=== PATIENT | female | born 1980 | race Two or more races ===

== ENCOUNTER 2017-01-23 15:16 | Inpatient (IN) | payer OTHER ==
[2017-01-23 18:28] VITALS: BMI 36.9
--- NOTE | 2017-01-23 19:57 | HP ---
CIWA Score - CIWA Score Nausea/Vomitin Muscle Tremors: 3 Anxiety: 3 Agitation: 3 Paroxysmal Sweats: 2 Orientation: 0-Oriented Tacttile Disturbances: 2-Mild Itch/Numbness/Burn Auditory Disturbances: 2-Mild Harshness/Frighten Visual Disturbances: 2-Mild Sensitivity Headache: 2-Mild CIWA-Ar Total Score: 22 Admission ROS BHS - HPI Chief Complaint: i need help to stop drinking alcohol,xanax,cocaine,marijuana,heroin Allergies/Adverse Reactions: Allergies Allergy/AdvReac Type Severity Reaction Status Date / Time lactose Allergy Severe Vomiting Verified 01/23/17 19:22 sertraline HCl [From Zoloft] Allergy Severe Swelling Verified 01/23/17 19:22 History of Present Illness: this 36 years old female with alcohol dependence,xanax,cocaine,marijuana,heroin dependence,seeking detox,last treatment 04/27 [facility] completed alcohol related seizure last 04/27 syncope protein c deficiency on lovenox 120 mgs subcut last medicated 9 pm dvt right 06/28 [place] [facility] left 08/[address] [facility] schizoaffective disorder multiple admissions longest period sobriety 5 years Exam Limitations: No Limitations - Ebola screening Have you traveled outside of the country in the last 21 days: No Have you had contact with anyone from an Ebola affected area: No Have you been sick,other than usual withdrawal symptoms: No - Review of Systems Constitutional: Loss of Appetite, Malaise, Night Sweats, Changes in sleep, Weakness EENT: reports: Nose Congestion Respiratory: reports: Other (asthma,copd) Cardiac: reports: No Symptoms Reported GI: reports: Diarrhea, Nausea, Vomiting, Abdominal cramping : reports: No Symptoms Reported Musculoskeletal: reports: Back Pain, Muscle Pain Integumentary: reports: Dryness Neuro: reports: Tremors Endocrine: reports: No Symptoms Reported Hematology: reports: Anemia Psychiatric: reports: Judgement Intact, Mood/Affect Appropiate, Orientated x3 ( schizoaffective), other Patient History - Patient Medical History Hx Anemia: Yes (non compliant) Hx Asthma: Yes (on albuterol and advair) Hx Chronic Obstructive Pulmonary Disease (COPD): Yes (on albuterola nd advair) Hx Cancer: No Hx Cardiac Disorders: No Hx Hypertension: No Hx Hypercholesterolemia: No Hx Pacemaker: No HX Cerebrovascular Accident: No Hx Seizures: Yes (last 04/27 alcohol related) Hx Dementia: No Hx Diabetes: No Hx Gastrointestinal Disorders: No Hx Liver Disease: No Hx Genitourinary Disorders: No Hx Sexually Transmitted Disorders: No Hx Renal Disease (ESRD): No Hx Thyroid Disease: Yes (hypothyriodism no med dx last week) Hx Human Immunodeficiency Virus (HIV): No (last 06/28 negative) Hx Hepatitis C: No Hx Depression: No Hx 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 [place]) Hx Bipolar Disorder: No Hx Schizophrenia: Yes Other Medical History: no suicidal,no homicidal - Patient Surgical History Past Surgical History: No Hx Neurologic Surgery: No Hx Cataract Extraction: No Hx Cardiac Surgery: No Hx Lung Surgery: No Hx Breast Surgery: No Hx Breast Biopsy: No Hx Abdominal Surgery: No Hx Appendectomy: No Hx Cholecystectomy: No Hx Genitourinary Surgery: No Hx Section: No Hx Orthopedic Surgery: No Anesthesia Reaction: No - PPD History Previous Implant?: Yes Documented Results: Negative w/o proof Implanted On Prior [facility] Admission?: No PPD to be Administered?: Yes - Reproductive History Patient is a Female of Child Bearing Age (11 -55 yrs old): Yes Last Menstrual Period: 01/03/17 Patient : No - Smoking Cessation Smoking history: Current every day smoker Have you smoked in the past 12 months: Yes Aproximately how many cigarettes per day: 4 Hx Chewing Tobacco Use: No Initiated information on smoking cessation: Yes 'Breaking Loose' booklet given: 01/23/17 - Substance & Tx. History Hx Alcohol Use: Yes Hx Substance Use: Yes Substance Use Type: Alcohol, Cocaine, Heroin, Marijuana, Tranquilizers - Substances Abused Alcohol Route: Oral Frequency: Daily Amount used: liquor- 3 pints, beer- 3 of six packof 2 ozs Age of first use: 15 Date of Last Use: 01/22/17 Alprazolam (Xanax) Route: Oral Frequency: Daily Amount used: 4mg Age of first use: 30 Date of Last Use: 01/19/17 Heroin Route: Inhalation Frequency: 1-2 times per week Amount used: 1 bag Age of first use: 25 Date of Last Use: 01/19/17 Cocaine Route: Smoking Frequency: Daily Amount used: 400$ Age of first use: 25 Date of Last Use: 01/22/17 Marijuana/Hashish Route: Smoking Frequency: Daily Amount used: 40$ Age of first use: 15 Date of Last Use: 01/22/17 Family Disease History - Family Disease History Family History: Denies Family Disease History: Other: Father (protein s), Mother (protien c), Brother ( protien s), Sister (protein c) Admission Physical Exam [facility] - Vital Signs Vital Signs: Vital Signs - 24 hr 01/23/17 18:24 Temperature 96.1 F L Pulse Rate 65 Respiratory 20 Rate Blood Pressure 125/79 - Physical General Appearance: Yes: Moderate Distress, Tremorous, Irritable, Sweating, Anxious HEENTM: Yes: Normal ENT Inspection, ZACHARY, Pharynx Normal Respiratory: Yes: Lungs Clear, Normal Breath Sounds, No Respiratory Distress Neck: Yes: Within Normal Limits Breast: Yes: Breast Exam Deferred Cardiology: Yes: Within Normal Limits, Regular Rhythm, Regular Rate, S1, S2 Abdominal: Yes: Within Normal Limits, Normal Bowel Sounds, Non Tender, Flat, Soft Genitourinary: Yes: Within Normal Limits Back: Yes: Muscle Spasm Musculoskeletal: Yes: Back pain, Muscle Pain Extremities: Yes: Within Normal Limits, Normal Range of Motion, Tremors 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: 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: 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 intact, Fully Oriented, Alert, Motor Strength 5/5 Integumentary: Yes: Dry Lymphatic: Yes: Within Normal Limits - Diagnostic (1) Alcohol dependence with uncomplicated withdrawal Current Visit: Yes Status: Acute (2) Uncomplicated sedative, hypnotic or anxiolytic withdrawal Current Visit: Yes Status: Acute (3) Cocaine dependence Current Visit: Yes Status: Acute (4) Cannabis dependence Current Visit: Yes Status: Acute (5) Heroin dependence Current Visit: Yes Status: Acute (6) Alcohol related seizure Current Visit: Yes Status: Acute (7) Syncope Current Visit: Yes Status: Acute (8) Right leg DVT Current Visit: Yes Status: Acute (9) History of pulmonary embolism Current Visit: Yes Status: Acute (10) Asthma Current Visit: Yes Status: Acute (11) COPD (chronic obstructive pulmonary disease) Current Visit: Yes Status: Acute (12) Anemia Current Visit: Yes Status: Acute (13) Protein C deficiency Current Visit: Yes Status: Acute Cleared for Admission [facility] - Detox or Rehab [facility] Level of Care: Medically Managed Detox Regimen/Protocol: Librium S Breath Alcohol Content Breath Alcohol Content: 0 Urine Pregancy Test - Result Urine Test Results: Negative- NO Line Present Urine Drug Screen - Results Drug Screen Negative: No Urine Drug Screen Results: THC-Marijuana, BRENDA-Cocaine
[2017-01-23] MEDS ORDERED: hydrOXYzine PAMOATE 25 MG CAPSULE (FP) PO PRN (20:22)
[2017-01-23] MEDS ORDERED: guaiFENesin/D-METHORPHAN HB 10 ML UNIT-DOSE CUPS PO PRN (20:22)
[2017-01-23] MEDS ORDERED: MENTHOL/PHENOL 1 EACH UD MM PRN (20:22)
[2017-01-23] MEDS ORDERED: LOPERAMIDE HCL 2 MG CAPSULE PO PRN (20:22)
[2017-01-23] MEDS ORDERED: MAG HYDROX/AL HYDROX/SIMETH 30 ML UNIT-DOSE CUP PO PRN (20:22)
[2017-01-23] MEDS ORDERED: MAGNESIUM HYDROX 2400MG/30ML ORAL SUSPENSION 30 ML CUP PO PRN (20:22)
[2017-01-23] MEDS ORDERED: MAGNESIUM CITRATE 300 ML BOTTLE PO PRN (20:22)
[2017-01-23] MEDS ORDERED: P-EPHED 60MG/TRIPROLIDI 2.5MG TABLET PO PRN (20:22)
[2017-01-23] MEDS ORDERED: ACETAMINOPHEN 325 MG TABLET (FP) PO PRN (20:22)
[2017-01-23] MEDS ORDERED: chlordiazePOXIDE HCL 25 MG CAPSULE PO ONE (20:22)
[2017-01-23] MEDS ORDERED: chlordiazePOXIDE HCL 25 MG CAPSULE PO PRN (20:22)
[2017-01-23] MEDS ORDERED: IBUPROFEN 400 MG TABLET (FP) PO PRN (20:22)
[2017-01-23] MEDS ORDERED: ALBUTEROL SO4 6.7 GM HFA INHALER IH PRN (20:42)
[2017-01-23 23:09] LABS: URINE APPEARANCE SLCLOUDY; URINE BILIRUBIN NEGATIVE (NEGATIVE); URINE BLOOD NEGATIVE (NEGATIVE); URINE COLOR YELLOW; URINE GLUCOSE (UA) NEGATIVE (NEGATIVE); URINE KETONE NEGATIVE (NEGATIVE); URINE LEUK ESTERASE NEGATIVE (NEGATIVE); URINE NITRITE NEGATIVE (NEGATIVE); URINE PROTEIN NEGATIVE (NEGATIVE)
[2017-01-23] MEDS: diphenhydrAMINE HCL 50 MG CAPSULE PO PRN (23:11)
[2017-01-23] MEDS: THIAMINE HCL 100 MG TABLET (FP) PO SCH (23:12)
[2017-01-23] MEDS: chlordiazePOXIDE HCL 25 MG CAPSULE PO SCH (23:13)
[2017-01-23] MEDS: BUDESONIDE/FORMETEROL FUMARATE 80/4.5 mcg INHALER IH SCH (23:16)
[2017-01-24] MEDS: chlordiazePOXIDE HCL 25 MG CAPSULE PO SCH ×4 (05:22→22:06)
--- NOTE | 2017-01-24 09:42 | PN ---
S CIWA - CIWA Score Nausea/Vomitin Muscle Tremors: 3 Anxiety: 2 Agitation: 2 Paroxysmal Sweats: 1-Minimal Palms Moist Orientation: 0-Oriented Tacttile Disturbances: 1-Very Mild Itch/Numbness Auditory Disturbances: 1-Very Mild Visual Disturbances: 1-Very Mild Sensitivity Headache: 2-Mild CIWA-Ar Total Score: 16 BHS Progress Note (SOAP) Subjective: ALERT,IRRITABLE,ANXIOUS,INTERRUPTED SLEEP,TREMOR Objective: 01/24/17 09:38 Vital Signs Temperature 97.5 F L 01/24/17 06:19 Pulse Rate 64 01/24/17 06:19 Respiratory Rate 16 01/24/17 06:19 Blood Pressure 111/56 01/24/17 06:19 O2 Sat by Pulse Oximetry (%) EKG NSR WITH SINUS RHYTHM WITH SINUS ARRHYTHMIA,INVERTED T IN 3 NO CHEST PAIN,NO SOB,NO DIZZINESS 01/24/17 09:41 Laboratory Last Values Urine Color Yellow 01/23/17 22:20 Urine Appearance Slcloudy 01/23/17 22:20 Urine pH 6.0 (5.0-8.0) 01/23/17 22:20 Urine Protein Negative (NEGATIVE) 01/23/17 22:20 Urine Glucose (UA) Negative (NEGATIVE) 01/23/17 22:20 Urine Ketones Negative (NEGATIVE) 01/23/17 22:20 Urine Blood Negative (NEGATIVE) 01/23/17 22:20 Urine Nitrite Negative (NEGATIVE) 01/23/17 22:20 Urine Bilirubin Negative (NEGATIVE) 01/23/17 22:20 Urine Urobilinogen 2.0 mg/dL (0.2-1.0) H 01/23/17 22:20 Ur Leukocyte Esterase Negative (NEGATIVE) 01/23/17 22:20 LABS PENDING 01/24/17 09:42 Assessment: 01/24/17 09:42 WITHDRAWAL SYMPTOM 01/24/17 09:42 Plan: CONTINUE DETOX
[2017-01-24] MEDS: PRENATAL VITAMINS W/ FOLIC ACID TABLET (FP) PO SCH (10:08)
[2017-01-24] MEDS: BUDESONIDE/FORMETEROL FUMARATE 80/4.5 mcg INHALER IH SCH ×2 (10:12→22:21)
[2017-01-24] MEDS: ENOXAPARIN NA (PORCINE) 120 MG/0.8 ML DISP.SYRIN SQ SCH (10:14)
[2017-01-24 10:18] LABS: INR 0.99 (0.82-1.09); PROTHROMBIN TIME (PATIENT) 10.9 SEC (9.98-11.88)
[2017-01-24 10:20] LABS: MCH 23.8 pg (25.7-33.7); MCHC 31.1 g/dl (32.0-36.0); MEAN CELL VOLUME 76.6 fl (80-96); MEAN PLT VOLUME 8.9 fl (7.5-11.1); PLATELET COUNT 233 K/MM3 (134-434); RDW 15.8 % (11.6-15.6); WHITE BLOOD COUNT 7.8 K/mm3 (4.0-10.0)
[2017-01-24 10:25] LABS: ALBUMIN 2.9 g/dl (3.4-5.0); ALK PHOS 115 U/L (45-117); ANION GAP 7 (8-16); BILIRUBIN,TOTAL 0.2 mg/dL (0.2-1.0); CALCIUM 8.5 mg/dL (8.5-10.1); CO2 29 mmol/L (21-32); CREATININE 0.9 mg/dL (0.55-1.02); GLUCOSE,RANDOM 103 mg/dL (74-106); SGOT/AST 17 U/L (15-37); SGPT/ALT 21 U/L (12-78); TOT PROT 5.9 g/dl (6.4-8.2)
[2017-01-24 12:05] LABS: SICKLE CELL SCREEN NEGATIVE (NEGATIVE)
--- NOTE | 2017-01-24 18:05 | CONSULT ---
[facility] Psychiatric Consult - Data Date of interview: 01/24/17 Admission source: [facility] Identifying data: First admission to [facility] for this 36 y/o A female seeking detox treatment on for alcohol,xanax,cocaine,heroin and marijuana dependence.Patient is single,a mother of five,homeless and reportedly employed. Substance Abuse History: Fully discussed with the patient in this interview.Ms Thompson confirms all details of this reprt. Smoking Cessation. Smoking history: Current every day smoker. Have you smoked in the past 12 months: Yes. Aproximately how many cigarettes per day: 4. Hx Chewing Tobacco Use: No. Initiated information on smoking cessation: Yes. 'Breaking Loose' booklet given : 01/23/17. - Substance & Tx. History. Hx Alcohol Use: Yes. Hx Substance Use : Yes. Substance Use Type: Alcohol, Cocaine, Heroin, Marijuana, Tranquilizers. - Substances Abused. Alcohol. Route: Oral. Frequency: Daily. Amount used: liquor- 3 pints, beer- 3 of six packof 2 ozs. Age of first use: 15. Date of Last Use: 01/22/17. Alprazolam (Xanax). Route: Oral. Frequency: Daily. Amount used: 4mg. Age of first use: 30. Date of Last Use: 01/19/17. * * Heroin. Route: Inhalation. Frequency: 1-2 times per week. Amount used: 1 bag. Age of first use: 25. Date of Last Use: 01/19/17. Cocaine. Route: Smoking. Frequency: Daily. Amount used: 400$. Age of first use: 25. Date of Last Use: 01/22/17. Marijuana/Hashish. Route: Smoking. Frequency: Daily. Amount used: 40$. Age of first use: 15. Date of Last Use: 01/22/17 Medical History: Remarkable for bronchial asthma,COPD,withdrawal-related seizures,anemia,protein C deficiency,hypothyroidism,DVT's and an antecedent of pulmonary embolism. Psychiatric History: Patient presents with a history of two psychiatric hospitalizations ([facility] [place] [facility]).Diagnosed with Schizoaffective Disorder.Ms Thompson reports OPD care at the [facility] mental health clinic in COUNTS INCLUDE 234 BEDS AT THE [facility].Maintained on olanzapine.Patient admits to a remote history of suicide attempt via self-mutilation (wrist-cutting). Physical/Sexual Abuse/Trauma History: Patient declines to discuss this domain. Additional Comment: Urine Drug Screen Results: THC-Marijuana, BRENDA-Cocaine.Noted. Mental Status Exam - Mental Status Exam Alert and Oriented to: Time, Place, Person Cognitive Function: Good Patient Appearance: Disheveled Mood: Nervous, Withdrawn, Irritable (on approach) Affect: Mood Congruent Patient Behavior: Fatigued, Appropriate, Cooperative Speech Pattern: Clear Voice Loudness: Normal Thought Process: Goal Oriented Thought Disorder: Not Present Hallucinations: Denies Suicidal Ideation: Denies Homicidal Ideation: Denies Insight/Judgement: Poor Sleep: Well (slept throughout the day.Interviewed after three initial attempts.) Appetite: Good Muscle strength/Tone: Normal Gait/Station: Normal Psychiatric Findings - Problem List ([place] 1, 2,3) (1) Alcohol dependence with uncomplicated withdrawal Current Visit: Yes Status: Acute (2) Heroin dependence Current Visit: Yes Status: Acute (3) Cocaine dependence Current Visit: Yes Status: Acute (4) Cannabis dependence Current Visit: Yes Status: Acute (5) Uncomplicated sedative, hypnotic or anxiolytic withdrawal Current Visit: Yes Status: Acute (6) Substance induced mood disorder Current Visit: Yes Status: Acute (7) Schizoaffective disorder Current Visit: Yes Status: Chronic Comment: History provided by patient. (8) Alcohol related seizure Current Visit: Yes Status: Chronic (9) Anemia Current Visit: Yes Status: Chronic (10) Asthma Current Visit: Yes Status: Chronic (11) COPD (chronic obstructive pulmonary disease) Current Visit: Yes Status: Chronic (12) History of pulmonary embolism Current Visit: Yes Status: Chronic (13) Protein C deficiency Current Visit: Yes Status: Chronic (14) Right leg DVT Current Visit: Yes Status: Chronic - Initial Treatment Plan Initial Treatment Plan: Psychoeducation.Detoxification.Medication : zyprexa 2.5 mg po hs.Patient is made aware of the potential for metabolic syndrome.She is in agreement with this careplan.Observation.
[2017-01-24] MEDS: OLANZapine 2.5 MG TABLET PO SCH (22:05)
[2017-01-24] MEDS: THIAMINE HCL 100 MG TABLET (FP) PO SCH (22:05)
[2017-01-24] MEDS: diphenhydrAMINE HCL 50 MG CAPSULE PO PRN (22:33)
[2017-01-25] MEDS: chlordiazePOXIDE HCL 25 MG CAPSULE PO SCH ×3 (06:05→17:27)
--- NOTE | 2017-01-25 09:46 | PN ---
S CIWA - CIWA Score Nausea/Vomitin Muscle Tremors: 3 Anxiety: 2 Agitation: 2 Paroxysmal Sweats: 1-Minimal Palms Moist Orientation: 0-Oriented Tacttile Disturbances: 1-Very Mild Itch/Numbness Auditory Disturbances: 1-Very Mild Visual Disturbances: 1-Very Mild Sensitivity Headache: 2-Mild CIWA-Ar Total Score: 16 S Progress Note (SOAP) Subjective: ALERT,IRRITABLE,ANXIOUS,INTERRUPTED SLEEP,PAIN IN THE BODY Objective: 01/25/17 09:44 Vital Signs Temperature 97.9 F 01/25/17 06:11 Pulse Rate 60 01/25/17 06:11 Respiratory Rate 16 01/25/17 06:11 Blood Pressure 111/70 01/25/17 06:11 O2 Sat by Pulse Oximetry (%) Laboratory Last Values WBC 7.8 K/mm3 (4.0-10.0) 01/24/17 07:00 RBC 5.26 M/mm3 (3.60-5.2) H 01/24/17 07:00 Hgb 12.5 GM/dL (10.7-15.3) 01/24/17 07:00 Hct 40.3 % (32.4-45.2) 01/24/17 07:00 MCV 76.6 fl (80-96) L 01/24/17 07:00 MCH 23.8 pg (25.7-33.7) L 01/24/17 07:00 MCHC 31.1 g/dl (32.0-36.0) L 01/24/17 07:00 RDW 15.8 % (11.6-15.6) H 01/24/17 07:00 Plt Count 233 K/MM3 (134-434) 01/24/17 07:00 MPV 8.9 fl (7.5-11.1) 01/24/17 07:00 Sickle Cell Screen Negative (NEGATIVE) 01/24/17 07:00 INR 0.99 (0.82-1.09) 01/24/17 07:00 Sodium 140 mmol/L (136-145) 01/24/17 07:00 Potassium 3.9 mmol/L (3.5-5.1) 01/24/17 07:00 Chloride 104 mmol/L (98-107) 01/24/17 07:00 Carbon Dioxide 29 mmol/L (21-32) 01/24/17 07:00 Anion Gap 7 (8-16) L 01/24/17 07:00 BUN 17 mg/dL (7-18) 01/24/17 07:00 Creatinine 0.9 mg/dL (0.55-1.02) 01/24/17 07:00 Creat Clearance w eGFR > 60 (>60) 01/24/17 07:00 Random Glucose 103 mg/dL (74-106) 01/24/17 07:00 Calcium 8.5 mg/dL (8.5-10.1) 01/24/17 07:00 Total Bilirubin 0.2 mg/dL (0.2-1.0) 01/24/17 07:00 AST 17 U/L (15-37) 01/24/17 07:00 ALT 21 U/L (12-78) 01/24/17 07:00 Alkaline Phosphatase 115 U/L (45-117) 01/24/17 07:00 Total Protein 5.9 g/dl (6.4-8.2) L 01/24/17 07:00 Albumin 2.9 g/dl (3.4-5.0) L 01/24/17 07:00 Urine Color Yellow 01/23/17 22:20 Urine Appearance Slcloudy 01/23/17 22:20 Urine pH 6.0 (5.0-8.0) 01/23/17 22:20 Ur Specific [place] 1.025 (1.005-1.025) 01/23/17 22:20 Urine Protein Negative (NEGATIVE) 01/23/17 22:20 Urine Glucose (UA) Negative (NEGATIVE) 01/23/17 22:20 Urine Ketones Negative (NEGATIVE) 01/23/17 22:20 Urine Blood Negative (NEGATIVE) 01/23/17 22:20 Urine Nitrite Negative (NEGATIVE) 01/23/17 22:20 Urine Bilirubin Negative (NEGATIVE) 01/23/17 22:20 Urine Urobilinogen 2.0 mg/dL (0.2-1.0) H 01/23/17 22:20 Ur Leukocyte Esterase Negative (NEGATIVE) 01/23/17 22:20 RPR Titer Nonreactive (NONREACTIVE) 01/24/17 07:00 Assessment: 01/25/17 09:45 WITHDRAWAL SYMPTOM Plan: CONTINUE DETOX
[2017-01-25] MEDS: BUDESONIDE/FORMETEROL FUMARATE 80/4.5 mcg INHALER IH SCH ×2 (10:32→22:19)
[2017-01-25] MEDS: PRENATAL VITAMINS W/ FOLIC ACID TABLET (FP) PO SCH (10:32)
[2017-01-25] MEDS: ENOXAPARIN NA (PORCINE) 120 MG/0.8 ML DISP.SYRIN SQ SCH (10:32)
--- NOTE | 2017-01-25 20:02 | EKG ---
Test Reason : Blood Pressure : / mmHG Vent. Rate : 058 BPM Atrial Rate : 058 BPM P-R Int : 174 ms QRS Dur : 098 ms QT Int : 452 ms P-R-T Axes : 062 -12 -11 degrees QTc Int : 443 ms SINUS BRADYCARDIA MODERATE VOLTAGE CRITERIA FOR LVH, MAY BE NORMAL VARIANT BORDERLINE ECG NO PREVIOUS ECGS AVAILABLE Confirmed by ZAMZAM GONZALES MD ([id number]) on 01/25/2017 8:01:53 PM Referred By: Confirmed By:ZAMZAM GONZALES MD
[2017-01-25] MEDS: chlordiazePOXIDE 5 MG CAPSULE PO SCH (22:19)
[2017-01-25] MEDS: OLANZapine 2.5 MG TABLET PO SCH (22:19)
[2017-01-25] MEDS: diphenhydrAMINE HCL 50 MG CAPSULE PO PRN (22:19)
[2017-01-25] MEDS: THIAMINE HCL 100 MG TABLET (FP) PO SCH (22:19)
[2017-01-26] MEDS: chlordiazePOXIDE 5 MG CAPSULE PO SCH ×3 (06:02→17:29)
--- NOTE | 2017-01-26 11:01 | PN ---
S Progress Note (SOAP) Subjective: ALERT,IRRITABLE,INTERRUPTED SLEEP Objective: 01/26/17 11:00 Vital Signs Temperature 96.9 F L 01/26/17 06:11 Pulse Rate 74 01/26/17 06:11 Respiratory Rate 18 01/26/17 06:11 Blood Pressure 101/67 01/26/17 06:11 O2 Sat by Pulse Oximetry (%) Assessment: 01/26/17 11:00 WITHDRAWAL SYMPTOM Plan: CONTINUE DETOX,DISCHARGE IN AM
[2017-01-26] MEDS: BUDESONIDE/FORMETEROL FUMARATE 80/4.5 mcg INHALER IH SCH ×2 (11:12→22:17)
[2017-01-26] MEDS: PRENATAL VITAMINS W/ FOLIC ACID TABLET (FP) PO SCH (11:12)
[2017-01-26] MEDS: ENOXAPARIN NA (PORCINE) 120 MG/0.8 ML DISP.SYRIN SQ SCH (11:14)
[2017-01-26] MEDS: chlordiazePOXIDE HCL 10 MG CAPSULE PO SCH (22:16)
[2017-01-26] MEDS: OLANZapine 2.5 MG TABLET PO SCH (22:16)
[2017-01-26] MEDS: diphenhydrAMINE HCL 50 MG CAPSULE PO PRN (22:16)
[2017-01-26] MEDS: THIAMINE HCL 100 MG TABLET (FP) PO SCH (22:16)
[2017-01-27] MEDS: chlordiazePOXIDE HCL 10 MG CAPSULE PO SCH (05:48)
--- NOTE | 2017-01-27 10:18 | DS ---
[facility] Detox Discharge Summary Admission Date: 01/23/17 Discharge Date: 01/27/17 - History Present History: Alcohol Dependence, Cannabis Dependence, Cocaine Dependence, Sedative Dependence - Physical Exam Results Vital Signs: Vital Signs Temperature 97.7 F 01/27/17 06:00 Pulse Rate 73 01/27/17 06:00 Respiratory Rate 18 01/27/17 06:00 Blood Pressure 106/66 01/27/17 06:00 O2 Sat by Pulse Oximetry (%) - Treatment Hospital Course: Detox Protocol Followed, Detoxed Safely, Responded well, Discharged Condition Good, Rehab Referral Accepted - Medication Discharge Medications: Ambulatory Orders Olanzapine [Zyprexa -] 2.5 mg PO HS 01/23/17 Enoxaparin [Lovenox -] 120 mg SQ DAILY #30 dis.syr 01/27/17 - Diagnosis (1) Alcohol dependence with uncomplicated withdrawal Current Visit: Yes Status: Chronic (2) Cannabis dependence Current Visit: Yes Status: Chronic (3) Cocaine dependence Current Visit: Yes Status: Chronic Qualifiers: Substance use status: uncomplicated Qualified Code(s): F14.20 - Cocaine dependence, uncomplicated (4) Substance induced mood disorder Current Visit: Yes Status: Acute (5) Syncope Current Visit: Yes Status: Chronic (6) Uncomplicated sedative, hypnotic or anxiolytic withdrawal Current Visit: Yes Status: Chronic (7) Alcohol related seizure Current Visit: Yes Status: Chronic (8) Anemia Current Visit: Yes Status: Chronic (9) Asthma Current Visit: Yes Status: Chronic Qualifiers: Asthma severity: mild intermittent (10) COPD (chronic obstructive pulmonary disease) Current Visit: Yes Status: Chronic Qualifiers: Emphysema type: unspecified (11) History of pulmonary embolism Current Visit: Yes Status: Chronic (12) Protein C deficiency Current Visit: Yes Status: Chronic (13) Right leg DVT Current Visit: Yes Status: Chronic (14) Schizoaffective disorder Current Visit: Yes Status: Chronic - AMA Did Patient Leave Against Medical Advice: No (going home and referred to outpatient)
[2017-01-27] MEDS: BUDESONIDE/FORMETEROL FUMARATE 80/4.5 mcg INHALER IH SCH (10:20)
[2017-01-27] MEDS: PRENATAL VITAMINS W/ FOLIC ACID TABLET (FP) PO SCH (10:20)
[2017-01-27] MEDS: ENOXAPARIN NA (PORCINE) 120 MG/0.8 ML DISP.SYRIN SQ SCH (10:21)
[2017-01-27 10:32] VITALS: BP 131/91; PULSE 83; TEMP 97.9
== END 2017-01-27 10:25 | disposition home or self-care (01) | DRG 773 ==
LOC: YASAS 15:16 → Y6N 19:25
PROVIDERS: ADMIT Internal Medicine; ATTEND Internal Medicine
PROC: HZ2ZZZZ Detoxification Services for Substance Abuse Treatment (ICD-10-PCS; principal; 2017-01-23)
DX: F13.230 Sedative, hypnotic or anxiolytic dependence with withdrawal, uncomplicated (principal); F10.230 Alcohol dependence with withdrawal, uncomplicated; F11.20 Opioid dependence, uncomplicated; F14.20 Cocaine dependence, uncomplicated; F17.210 Nicotine dependence, cigarettes, uncomplicated; F19.24 Other psychoactive substance dependence with psychoactive substance-induced mood disorder; F25.9 Schizoaffective disorder, unspecified; D64.9 Anemia, unspecified; J44.9 Chronic obstructive pulmonary disease, unspecified; D68.59 Other primary thrombophilia; I82.401 Acute embolism and thrombosis of unspecified deep veins of right lower extremity; Z79.01 Long term (current) use of anticoagulants; Z86.711 Personal history of pulmonary embolism; Z91.14 Patient's other noncompliance with medication regimen; Z86.69 Personal history of other diseases of the nervous system and sense organs; Z86.79 Personal history of other diseases of the circulatory system; Z91.011 Allergy to milk products; Z88.8 Allergy status to other drugs, medicaments and biological substances; Z91.5 Personal history of self-harm; Z59.0 Homelessness
CPT/HCPCS: 36415; 80053; 81003; 85027; 85610; 85660; 86593; 93005; 93010

== ENCOUNTER 2017-05-02 14:52 | Inpatient (IN) | payer OTHER ==
[2017-05-02 16:37] VITALS: BMI 38.4
--- NOTE | 2017-05-02 20:09 | HP ---
CIWA Score - CIWA Score Nausea/Vomitin Muscle Tremors: 2 Anxiety: 1-Mildly Anxious Agitation: 3 Paroxysmal Sweats: 3 Orientation: 1-Uncertain about Date Tacttile Disturbances: 0-None Auditory Disturbances: 1-Very Mild Visual Disturbances: 1-Very Mild Sensitivity Headache: 1-Very Mild CIWA-Ar Total Score: 16 Admission ROS BHS - HPI Chief Complaint: WITHDRAWAL SYMPTOMS Allergies/Adverse Reactions: Allergies Allergy/AdvReac Type Severity Reaction Status Date / Time lactose Allergy Severe Vomiting Verified 05/02/17 16:55 sertraline HCl [From Zoloft] Allergy Severe Swelling Verified 05/02/17 16:55 History of Present Illness: 36 Y.O. WOMAN WITH A HISTORY OF ALCOHOL DEPENDENCE IS HERE SEEKING DETOX. SHE WAS LAST HERE IN January, FOR DETOX. LONGEST PERIOD OF SOBRIETY HAS BEEN 5 YEARS. - Ebola screening Have you traveled outside of the country in the last 21 days: No (N) Have you had contact with anyone from an Ebola affected area: No Have you been sick,other than usual withdrawal symptoms: No Do you have a fever: No - Review of Systems Constitutional: Chills, Diaphoresis, Changes in sleep EENT: reports: Tearing Respiratory: reports: Cough Cardiac: reports: Lightheadedness GI: reports: No Symptoms Reported Musculoskeletal: reports: No Symptoms Reported Integumentary: reports: No Symptoms Reported Neuro: reports: Tremors Endocrine: reports: No Symptoms Reported Hematology: reports: No Symptoms Reported Psychiatric: reports: Agitated, Anxious Other Systems: Reviewed and Negative Patient History - Patient Medical History Hx Anemia: Yes (non compliant) Hx Asthma: Yes (Pt is on MDI.) Hx Chronic Obstructive Pulmonary Disease (COPD): No Hx Cancer: No Hx Cardiac Disorders: No Hx Congestive Heart Failure: No Hx Hypertension: No Hx Hypercholesterolemia: No Hx Pacemaker: No HX Cerebrovascular Accident: No Hx Seizures: No Hx Dementia: No Hx Diabetes: No Hx Gastrointestinal Disorders: No Hx Liver Disease: No Hx Genitourinary Disorders: No Hx Sexually Transmitted Disorders: No Hx Renal Disease (ESRD): No Hx Thyroid Disease: Yes (hypothyriodism no med ) Hx Human Immunodeficiency Virus (HIV): No (last 06/28 negative) Hx Hepatitis C: No Hx Depression: Yes Hx Suicide Attempt: Yes (Pt Tried to overdose in 2012.) Hx Bipolar Disorder: No Hx Schizophrenia: No - Patient Surgical History Past Surgical History: Yes Hx Neurologic Surgery: No Hx Cataract Extraction: No Hx Cardiac Surgery: No Hx Lung Surgery: No Hx Breast Surgery: No Hx Breast Biopsy: No Hx Abdominal Surgery: No Hx Appendectomy: No Hx Cholecystectomy: No Hx Genitourinary Surgery: No Hx Section: No Hx Orthopedic Surgery: No Other Surgical History: Tubal ligation in 2013 Anesthesia Reaction: No - PPD History Previous Implant?: Yes Documented Results: Negative w/proof Implanted On Prior [facility] Admission?: Yes Date: 01/25/17 Results: 0 mm PPD to be Administered?: No - Reproductive History Patient is a Female of Child Bearing Age (11 -55 yrs old): Yes Last Menstrual Period: 05/01/17 Patient : No - Smoking Cessation Smoking history: Former smoker Have you smoked in the past 12 months: Yes Aproximately how many cigarettes per day: 0 If you are a former smoker, when did you quit?: 2 months ago Hx Chewing Tobacco Use: No Initiated information on smoking cessation: No - Substance & Tx. History Hx Alcohol Use: Yes Hx Substance Use: No Substance Use Type: Alcohol, Cocaine, Marijuana, Tranquilizers Hx Substance Use Treatment: Yes (DETOX: 01/2017) - Substances Abused Alcohol Route: Oral Frequency: Daily Amount used: FIFTH VODKA Age of first use: 15 Date of Last Use: 05/01/17 Cocaine Route: Inhalation Frequency: Daily Amount used: 6-10 GRAMS Age of first use: 25 Date of Last Use: 05/01/17 Marijuana/Hashish Route: Smoking Frequency: Daily Amount used: 1/8 OF OUNCE Age of first use: 13 Date of Last Use: 05/01/17 Alprazolam (Xanax) Route: Oral Frequency: Daily Amount used: 2MG Age of first use: 30 Date of Last Use: 04/29/17 Family Disease History - Family Disease History Family Disease History: Other: Father (protein s), Mother (protien c), Brother ( protien s), Sister (protein c) Admission Physical Exam BHS - Vital Signs Vital Signs: Vital Signs - 24 hr 05/02/17 16:33 Temperature 97.5 F L Pulse Rate 64 Respiratory 18 Rate Blood Pressure 100/64 - Physical General Appearance: Yes: Disheveled, Obese HEENTM: Yes: Hearing grossly Normal, Normocephalic, Normal Voice Respiratory: Yes: Chest Non-Tender, Lungs Clear, Normal Breath Sounds Neck: Yes: No masses,lesions,Nodules, Trachea in good position Breast: Yes: Breast Exam Deferred Cardiology: Yes: Regular Rhythm, Regular Rate Abdominal: Yes: Non Tender, Soft Genitourinary: Yes: Other (NO COMPLAINTS REPORTED) Back: Yes: Normal Inspection Musculoskeletal: Yes: full range of Motion, Gait Steady Extremities: Yes: Normal Capillary Refill, Normal Inspection, Tremors 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: Yes: Alert, Normal Mood/Affect, Normal Response Integumentary: Yes: Normal Color, Dry, Warm Lymphatic: Yes: Within Normal Limits - Diagnostic (1) Alcohol dependence with uncomplicated withdrawal Current Visit: Yes Status: Chronic (2) Alcohol related seizure Current Visit: No Status: Acute (3) Anemia Current Visit: Yes Status: Chronic (4) COPD (chronic obstructive pulmonary disease) Current Visit: Yes Status: Chronic Qualifiers: Emphysema type: unspecified (5) Cannabis dependence Current Visit: Yes Status: Chronic (6) Cocaine dependence Current Visit: Yes Status: Chronic Qualifiers: Substance use status: uncomplicated Qualified Code(s): F14.20 - Cocaine dependence, uncomplicated (7) History of pulmonary embolism Current Visit: No Status: Chronic (8) Protein C deficiency Current Visit: Yes Status: Chronic (9) Uncomplicated sedative, hypnotic or anxiolytic withdrawal Current Visit: Yes Status: Chronic Cleared for Admission [facility] - Detox or Rehab [facility] Level of Care: Medically Managed Detox Regimen/Protocol: Librium [facility] Breath Alcohol Content Breath Alcohol Content: 0 Urine Pregancy Test - Result Urine Test Results: Negative- NO Line Present Urine Drug Screen - Results Drug Screen Negative: No Urine Drug Screen Results: THC-Marijuana, BRENDA-Cocaine, BZO-Benzodiazepines
[2017-05-02] MEDS ORDERED: chlordiazePOXIDE HCL 25 MG CAPSULE PO PRN (20:21)
[2017-05-02] MEDS ORDERED: MAGNESIUM CITRATE 300 ML BOTTLE PO PRN (20:21)
[2017-05-02] MEDS ORDERED: LOPERAMIDE HCL 2 MG CAPSULE PO PRN (20:21)
[2017-05-02] MEDS ORDERED: MAGNESIUM HYDROX 2400MG/30ML ORAL SUSPENSION 30 ML CUP PO PRN (20:21)
[2017-05-02] MEDS ORDERED: MAG HYDROX/AL HYDROX/SIMETH 30 ML UNIT-DOSE CUP PO PRN (20:21)
[2017-05-02] MEDS ORDERED: P-EPHED 60MG/TRIPROLIDI 2.5MG TABLET PO PRN (20:21)
[2017-05-02] MEDS ORDERED: IBUPROFEN 400 MG TABLET (FP) PO PRN (20:21)
[2017-05-02] MEDS ORDERED: ACETAMINOPHEN 325 MG TABLET (FP) PO PRN (20:21)
[2017-05-02] MEDS ORDERED: ALBUTEROL SO4 18 GM HFA INHALER IH PRN (20:26)
[2017-05-02] MEDS: chlordiazePOXIDE HCL 25 MG CAPSULE PO SCH (22:32)
[2017-05-02] MEDS: THIAMINE HCL 100 MG TABLET (FP) PO SCH (22:32)
[2017-05-02 22:44] LABS: URINE APPEARANCE CLOUDY; URINE BLOOD 3+ (NEGATIVE); URINE COLOR AMBER; URINE GLUCOSE (UA) NEGATIVE (NEGATIVE); URINE KETONE TRACE (NEGATIVE); URINE NITRITE NEGATIVE (NEGATIVE)
[2017-05-02 22:46] LABS: URINE PROTEIN 2+ (NEGATIVE)
[2017-05-02 22:54] LABS: URINE MUCUS MODERATE; URINE RBC 2940 /hpf (0-3); URINE WBC 60 /hpf (3-5)
[2017-05-03] MEDS: chlordiazePOXIDE HCL 25 MG CAPSULE PO SCH ×4 (05:53→22:54)
--- NOTE | 2017-05-03 07:35 | CONSULT ---
[facility] Psychiatric Consult - Data Date of interview: 05/03/17 Admission source: [facility] Identifying data: This is 36 years old obese female with psychiatric hospitalization history intoxicated with: Alcohol, Cannabis, Cocaine and Xanax Substance Abuse History: - Smoking Cessation. Smoking history: Current some day smoker. Have you smoked in the past 12 months: Yes. Aproximately how many cigarettes per day: 3. Hx Chewing Tobacco Use: No. Initiated information on smoking cessation: Yes. 'Breaking Loose' booklet given: 05/02/17. - Substance & Tx. History. Hx Alcohol Use: Yes. Hx Substance Use: Yes. Substance Use Type : Alcohol, Cocaine. Hx Substance Use Treatment: Yes (last detox 09/2016 [facility] ). - Substances Abused. Crack. Route: Smoking. Frequency: 1-2 times per week. Amount used: $50. Age of first use: 19. Date of Last Use: 05/01/17. * * Alcohol-beer/vodka. Route: Oral. Frequency: Daily. Amount used: 1-6 pk./1 pt. Age of first use: 13. Date of Last Use: 05/01/17 Medical History: PE history, Seizure history, Anemia history, Protein C deficiency, COPD Psychiatric History: PATIENT REPORTS HISTORY OF DEPRESSION, SCHIZOAFFECTIVE DISORDER, REPORTS PSYCHIATRIC ADMISSION 2 MONTHS AGO AT [facility] WITH SUICIDAL IDEATION. DENIES HISTORY OF SUICIDAL ATTEMPTS, REPORTS TAKING P[RIOR TO MADMISSION: ZYPREXA 20MG PO QD Physical/Sexual Abuse/Trauma History: Denies Additional Comment: Zyprexa 20mg poqd Mental Status Exam - Mental Status Exam Alert and Oriented to: Person Cognitive Function: Fair Patient Appearance: Unkempt Mood: Sad Affect: Flat Patient Behavior: Sedated Speech Pattern: Delayed Voice Loudness: Mildly Soft/Quiet Thought Process: Circumstantial Thought Disorder: Being Controlled Hallucinations: Denies Suicidal Ideation: Denies Homicidal Ideation: Denies Insight/Judgement: Fair Sleep: Difficulty falling asleep Appetite: Weight gain Muscle strength/Tone: Mild Hypotonicity Gait/Station: Shuffling Additional Comments: Zyprexa 20mg poqd Psychiatric Findings - Problem List ([place] 1, 2,3) (1) Alcohol dependence with uncomplicated withdrawal Current Visit: Yes Status: Chronic (2) Alcohol related seizure Current Visit: Yes Status: Chronic (3) Cannabis dependence Current Visit: Yes Status: Chronic (4) Cocaine dependence Current Visit: Yes Status: Chronic Qualifiers: Substance use status: uncomplicated Qualified Code(s): F14.20 - Cocaine dependence, uncomplicated (5) Uncomplicated sedative, hypnotic or anxiolytic withdrawal Current Visit: Yes Status: Chronic (6) Substance induced mood disorder Current Visit: No Status: Acute (7) Schizoaffective disorder Current Visit: No Status: Chronic Comment: History provided by patient. - Initial Treatment Plan Initial Treatment Plan: Zyprexa 20mg poqd
--- NOTE | 2017-05-03 09:51 | PN ---
S CIWA - CIWA Score Nausea/Vomitin Muscle Tremors: 3 Anxiety: 3 Agitation: 3 Paroxysmal Sweats: 3 Orientation: 0-Oriented Tacttile Disturbances: 1-Very Mild Itch/Numbness Auditory Disturbances: 0-None Visual Disturbances: 0-None Headache: 1-Very Mild CIWA-Ar Total Score: 17 BHS Progress Note (SOAP) Subjective: nausea, sweats, interrupted sleep anxiety, tremors Objective: 05/03/17 09:50 Vital Signs - 8 hr 05/03/17 05/03/17 03:30 06:37 Temperature 98.4 F Pulse Rate 83 Respiratory 18 18 Rate Blood Pressure 120/69 Laboratory Tests 05/02/17 Unknown Urine Color Xiomara Urine Appearance Cloudy Urine pH 6.0 Ur Specific Theodore 1.039 H Urine Protein 2+ H Urine Glucose (UA) Negative Urine Ketones Trace H Urine Blood 3+ H Urine Nitrite Negative Urine Bilirubin 2.0 Urine Urobilinogen 2.0 H Ur Epithelial Cells Few Urine Mucus Moderate labs still pending Assessment: 05/03/17 09:50 withdrwal sx cont detox, fluids, encourage ambulation
[2017-05-03 10:01] LABS: MCH 23.9 pg (25.7-33.7); MCHC 30.2 g/dl (32.0-36.0); MEAN PLT VOLUME 8.9 fl (7.5-11.1); PLATELET COUNT 236 K/MM3 (134-434); RDW 16.1 % (11.6-15.6); WHITE BLOOD COUNT 7.2 K/mm3 (4.0-10.0)
--- NOTE | 2017-05-03 10:16 | EKG ---
Test Reason : Blood Pressure : / mmHG Vent. Rate : 054 BPM Atrial Rate : 054 BPM P-R Int : 138 ms QRS Dur : 078 ms QT Int : 416 ms P-R-T Axes : 048 -03 000 degrees QTc Int : 394 ms SINUS BRADYCARDIA WITH SINUS ARRHYTHMIA MODERATE VOLTAGE CRITERIA FOR LVH, MAY BE NORMAL VARIANT NONSPECIFIC T WAVE ABNORMALITY ABNORMAL ECG WHEN COMPARED WITH ECG OF 23-JAN-2017 21:56, NO SIGNIFICANT CHANGE WAS FOUND Confirmed by DAGOBERTO BLANCAS MD ([id number]) on 05/03/2017 10:16:41 AM Referred By: Confirmed By:DAGOBERTO BLANCAS MD
[2017-05-03 10:21] LABS: ALBUMIN 2.7 g/dl (3.4-5.0); ALK PHOS 119 U/L (45-117); ANION GAP 5 (8-16); BILIRUBIN,TOTAL 0.4 mg/dL (0.2-1.0); CALCIUM 7.8 mg/dL (8.5-10.1); CO2 26 mmol/L (21-32); CREATININE 0.8 mg/dL (0.55-1.02); GLUCOSE,RANDOM 124 mg/dL (74-106); SGOT/AST 11 U/L (15-37); SGPT/ALT 19 U/L (12-78); TOT PROT 5.4 g/dl (6.4-8.2)
[2017-05-03] MEDS: OLANZapine 10 MG TABLET PO SCH (10:39)
[2017-05-03] MEDS: PRENATAL VITAMINS W/ FOLIC ACID TABLET (FP) PO SCH (10:39)
[2017-05-03 11:05] LABS: URINE LEUK ESTERASE TRACE (NEGATIVE)
[2017-05-03 11:09] LABS: HIV 1 & 2 AB NEGATIVE; HIV 1 AGp24 NEGATIVE
[2017-05-03] MEDS: ENOXAPARIN NA (PORCINE) 120 MG/0.8 ML DISP.SYRIN SQ SCH (11:31)
--- NOTE | 2017-05-03 18:52 | PN ---
BHS Progress Note Note: received nurse call that the patient is sleepy hold librium 50 mg one dose fall precaution increase oral fluid
[2017-05-03] MEDS: THIAMINE HCL 100 MG TABLET (FP) PO SCH (22:54)
[2017-05-04] MEDS: chlordiazePOXIDE HCL 25 MG CAPSULE PO SCH ×3 (07:44→17:50)
[2017-05-04] MEDS: PRENATAL VITAMINS W/ FOLIC ACID TABLET (FP) PO SCH (10:40)
[2017-05-04] MEDS: OLANZapine 10 MG TABLET PO SCH (10:40)
[2017-05-04] MEDS: ENOXAPARIN NA (PORCINE) 120 MG/0.8 ML DISP.SYRIN SQ SCH (10:42)
[2017-05-04] MEDS: hydrOXYzine PAMOATE 50 MG CAPSULE (FP) PO PRN (11:33)
--- NOTE | 2017-05-04 13:00 | PN ---
S CIWA - CIWA Score Nausea/Vomitin-No Nausea/No Vomiting Muscle Tremors: 4-Moderate,w/Arms Extend Anxiety: 3 Agitation: 4-Moderately Restless Paroxysmal Sweats: 3 Orientation: 0-Oriented Tacttile Disturbances: 0-None Auditory Disturbances: 0-None Visual Disturbances: 0-None Headache: 1-Very Mild CIWA-Ar Total Score: 15 BHS Progress Note (SOAP) Subjective: irritable agitation anxiety sweats body aches Objective: 05/04/17 12:59 Vital Signs Temperature 97.9 F 05/04/17 09:59 Pulse Rate 94 H 05/04/17 09:59 Respiratory Rate 16 05/04/17 09:59 Blood Pressure 154/89 05/04/17 09:59 O2 Sat by Pulse Oximetry (%) Laboratory Tests 05/02/17 05/03/17 05/03/17 Unknown 07:00 07:00 WBC 7.2 RBC 4.77 Hgb 11.4 Hct 37.7 MCV 79.0 L MCH 23.9 L MCHC 30.2 L RDW 16.1 H Plt Count 236 MPV 8.9 Sodium Potassium Chloride Carbon Dioxide Anion Gap BUN Creatinine Creat Clearance w eGFR Random Glucose Calcium Total Bilirubin AST ALT Alkaline Phosphatase Total Protein Albumin Urine Color Xiomara Urine Appearance Cloudy Urine pH 6.0 Ur Specific [place] 1.039 H Urine Protein 2+ H Urine Glucose (UA) Negative Urine Ketones Trace H Urine Blood 3+ H Urine Nitrite Negative Urine Bilirubin 2.0 Urine Urobilinogen 2.0 H Ur Leukocyte Esterase Trace H Urine RBC No Result Required. Ur Epithelial Cells Few Urine Mucus Moderate RPR Titer HIV 1&2 Antibody Screen Negative HIV P24 Antigen Negative 05/03/17 05/03/17 07:00 07:00 WBC RBC Hgb Hct MCV MCH MCHC RDW Plt Count MPV Sodium 141 Potassium 4.0 Chloride 110 H Carbon Dioxide 26 Anion Gap 5 L BUN 17 Creatinine 0.8 Creat Clearance w eGFR > 60 Random Glucose 124 H D Calcium 7.8 L Total Bilirubin 0.4 D AST 11 L D ALT 19 Alkaline Phosphatase 119 H Total Protein 5.4 L Albumin 2.7 L Urine Color Urine Appearance Urine pH Ur Specific [place] Urine Protein Urine Glucose (UA) Urine Ketones Urine Blood Urine Nitrite Urine Bilirubin Urine Urobilinogen Ur Leukocyte Esterase Urine RBC Ur Epithelial Cells Urine Mucus RPR Titer Nonreactive HIV 1&2 Antibody Screen HIV P24 Antigen aaox3 ambulating no acute distress Assessment: 05/04/17 13:00 withdrawal sx Plan: continue detox increase fluids
[2017-05-04] MEDS: guaiFENesin/D-METHORPHAN HB 10 ML UNIT-DOSE CUPS PO PRN (18:01)
[2017-05-04] MEDS: THIAMINE HCL 100 MG TABLET (FP) PO SCH (22:24)
--- NOTE | 2017-05-04 22:24 | EKG ---
Test Reason : Blood Pressure : / mmHG Vent. Rate : 086 BPM Atrial Rate : 086 BPM P-R Int : 150 ms QRS Dur : 086 ms QT Int : 384 ms P-R-T Axes : 064 -16 009 degrees QTc Int : 459 ms NORMAL SINUS RHYTHM VOLTAGE CRITERIA FOR LEFT VENTRICULAR HYPERTROPHY NONSPECIFIC T WAVE ABNORMALITY ABNORMAL ECG WHEN COMPARED WITH ECG OF 02-MAY-2017 21:12, VENT. RATE HAS INCREASED BY 32 BPM Confirmed by AUBREY MARTÍNEZ, JILLIAN ([id number]) on 05/04/2017 10:24:28 PM Referred By: Confirmed By:JILLIAN BURGOS MD
[2017-05-04] MEDS: chlordiazePOXIDE 5 MG CAPSULE PO SCH (22:25)
[2017-05-05] MEDS: chlordiazePOXIDE 5 MG CAPSULE PO SCH ×3 (06:20→17:32)
[2017-05-05] MEDS: IBUPROFEN 400 MG TABLET (FP) PO PRN ×2 (09:15→22:33)
[2017-05-05] MEDS: CYCLOBENZAPRINE HCL 10 MG TABLET (FP) PO PRN ×2 (09:15→22:32)
[2017-05-05] MEDS: guaiFENesin/D-METHORPHAN HB 10 ML UNIT-DOSE CUPS PO PRN ×2 (09:16→18:48)
--- NOTE | 2017-05-05 09:26 | PN ---
BHS Progress Note (SOAP) Subjective: generalized pain due to my sickle cell sweats irritable cough Objective: 05/05/17 09:25 Vital Signs Temperature 97.5 F L 05/05/17 06:26 Pulse Rate 83 05/05/17 06:26 Respiratory Rate 18 05/05/17 06:26 Blood Pressure 123/73 05/05/17 06:26 O2 Sat by Pulse Oximetry (%) aaox3 ambulating no acute distress Assessment: 05/05/17 09:26 withdrawal sx Plan: increase fluid intake motrin 800mg flexiril prn continue detox d/c in am
[2017-05-05] MEDS: ENOXAPARIN NA (PORCINE) 120 MG/0.8 ML DISP.SYRIN SQ SCH (09:39)
[2017-05-05] MEDS: OLANZapine 10 MG TABLET PO SCH (10:51)
[2017-05-05] MEDS: PRENATAL VITAMINS W/ FOLIC ACID TABLET (FP) PO SCH (10:51)
[2017-05-05] MEDS: chlordiazePOXIDE HCL 10 MG CAPSULE PO SCH (22:33)
[2017-05-05] MEDS: THIAMINE HCL 100 MG TABLET (FP) PO SCH (22:34)
[2017-05-05] MEDS: hydrOXYzine PAMOATE 50 MG CAPSULE (FP) PO PRN (22:34)
[2017-05-05] MEDS: MENTHOL/PHENOL 1 EACH UD MM PRN (22:36)
[2017-05-05] MEDS ORDERED: ALBUTEROL SO4 2.5/IPRATROPIUM 0.5 INH SOL 3 ML VIAL.NEB. NEB PRN (22:52)
[2017-05-06] MEDS: guaiFENesin/D-METHORPHAN HB 10 ML UNIT-DOSE CUPS PO PRN (04:52)
[2017-05-06] MEDS: MENTHOL/PHENOL 1 EACH UD MM PRN (04:53)
[2017-05-06] MEDS: chlordiazePOXIDE HCL 10 MG CAPSULE PO SCH (05:45)
--- NOTE | 2017-05-06 10:06 | DS ---
[facility] Detox Discharge Summary Admission Date: 05/02/17 Discharge Date: 05/06/17 - History Present History: Alcohol Dependence, Cannabis Dependence, Cocaine Dependence, Sedative Dependence Additional Comments: follow up with after care program as arrangement Pertinent Past History: alcohol related seizure copd protein c deficiiency history of pulmonary embolism history of dvt right - Physical Exam Results Vital Signs: Vital Signs Temperature 98.4 F 05/06/17 06:19 Pulse Rate 79 05/06/17 06:19 Respiratory Rate 18 05/06/17 06:19 Blood Pressure 115/72 05/06/17 06:19 O2 Sat by Pulse Oximetry (%) Pertinent Admission Physical Exam Findings: withdrawal symptom - Treatment Hospital Course: Detox Protocol Followed, Detoxed Safely, Responded well, Discharged Condition Good Patient has Accepted a Rehab Referral to: declined - Medication Discharge Medications: Ambulatory Orders Enoxaparin [Lovenox -] 120 mg SQ DAILY #30 dis.syr 01/27/17 Olanzapine [Zyprexa] 20 mg PO DAILY #30 tablet 05/03/17 - Diagnosis (1) Alcohol dependence with uncomplicated withdrawal Current Visit: Yes Status: Chronic (2) Alcohol related seizure Current Visit: Yes Status: Chronic (3) COPD (chronic obstructive pulmonary disease) Current Visit: Yes Status: Chronic Qualifiers: Emphysema type: unspecified (4) Cannabis dependence Current Visit: Yes Status: Chronic (5) Cocaine dependence Current Visit: Yes Status: Chronic Qualifiers: Substance use status: uncomplicated Qualified Code(s): F14.20 - Cocaine dependence, uncomplicated (6) Protein C deficiency Current Visit: Yes Status: Chronic (7) Uncomplicated sedative, hypnotic or anxiolytic withdrawal Current Visit: Yes Status: Chronic (8) Substance induced mood disorder Current Visit: No Status: Acute (9) Asthma Current Visit: No Status: Chronic Qualifiers: Asthma severity: mild intermittent (10) History of pulmonary embolism Current Visit: No Status: Chronic (11) Right leg DVT Current Visit: No Status: Chronic (12) Schizoaffective disorder Current Visit: No Status: Chronic - AMA Did Patient Leave Against Medical Advice: No
[2017-05-06] MEDS: ENOXAPARIN NA (PORCINE) 120 MG/0.8 ML DISP.SYRIN SQ SCH (10:41)
[2017-05-06] MEDS: hydrOXYzine PAMOATE 50 MG CAPSULE (FP) PO PRN (10:41)
[2017-05-06] MEDS: PRENATAL VITAMINS W/ FOLIC ACID TABLET (FP) PO SCH (10:41)
[2017-05-06] MEDS: OLANZapine 10 MG TABLET PO SCH (10:42)
[2017-05-06 11:40] VITALS: BP 123/73; PULSE 89; TEMP 97.2
== END 2017-05-06 11:13 | disposition home or self-care (01) | DRG 774 ==
LOC: YASAS 14:52 → Y6N 17:30
PROVIDERS: ADMIT Internal Medicine; ATTEND Internal Medicine
PROC: HZ2ZZZZ Detoxification Services for Substance Abuse Treatment (ICD-10-PCS; principal; 2017-05-02)
DX: F10.230 Alcohol dependence with withdrawal, uncomplicated (principal); F13.230 Sedative, hypnotic or anxiolytic dependence with withdrawal, uncomplicated; F14.20 Cocaine dependence, uncomplicated; F12.20 Cannabis dependence, uncomplicated; F19.24 Other psychoactive substance dependence with psychoactive substance-induced mood disorder; F25.9 Schizoaffective disorder, unspecified; G40.509 Epileptic seizures related to external causes, not intractable, without status epilepticus; I82.401 Acute embolism and thrombosis of unspecified deep veins of right lower extremity; J44.9 Chronic obstructive pulmonary disease, unspecified; J45.909 Unspecified asthma, uncomplicated; D64.9 Anemia, unspecified; D68.59 Other primary thrombophilia; Z59.0 Homelessness
CPT/HCPCS: 36415; 80053; 81003; 81015; 85027; 86593; 87389; 93005; 93010; 94640